=== PATIENT | male | born 1935 | race Caucasian/White ===

== ENCOUNTER 2023-05-21 01:52 | Emergency (ER) | payer OTHER, SELFPAY ==
[2023-05-21] VITALS (11 sets, daily range): BP systolic 82–194; BP diastolic 55–93; PULSE 51–58; RESP 17–28; TEMP 36.6; O2SAT 94–97; BMI 25.4
--- NOTE | 2023-05-21 02:06 | DI.RAD.S_ITS ---
PROCEDURE: XR CHEST 1V INDICATIONS: chest pain TECHNIQUE: One view of the chest was acquired. COMPARISON: None. FINDINGS: Surgical changes and devices: None. Lungs and pleura: Lungs are well expanded and clear. No pleural effusions or pneumothorax. Mediastinum: Mediastinal contours appear normal. Heart size is normal. Bones and chest wall: No suspicious bony lesions. Overlying soft tissues appear unremarkable. IMPRESSION: No acute cardiopulmonary abnormality. There is no significant discrepancy when compared to the overnight preliminary report. Approved by: Nitesh Iqbal M.D. on 05/21/2023 at 8:11
--- NOTE | 2023-05-21 02:08 | ED_ITS ---
HPI - Chest Pain General Chief Complaint: Chest Pain Stated Complaint: chest pain Time Seen by Provider: 05/21/23 01:58 Source: patient Mode of arrival: Ambulatory Limitations: no limitations History of Present Illness HPI narrative: Patient is a 88-year-old male history of hypothyroid hyperlipidemia presenting today with chest discomfort. He reports that while playing cards around 4:00 a.m. he experienced some heaviness. He said it went to away and then woke him from his sleep tonight. He describes a dull ache radiating up into his left arm now. He was slightly nauseous when he woke up no diaphoresis no shortness of breath. No known coronary artery disease. Denies any smoking history. Noted to be quite hypertensive here in the ED denies any prior history of hypertension. Related Data Allergies Allergy/AdvReac Type Severity Reaction Status Date / Time No Known Drug Allergies Allergy Verified 05/21/23 02:06 Review of Systems Review of Systems ROS Unobtainable: All systems reviewed & are unremarkable except as noted in HPI and below Patient History Social History Smoking Status: Never smoker Smoking Status: Never smoker alcohol intake frequency: 0-2 drinks per day Substance Use Type: does not use Exam Initial Vital Signs Initial Vital Signs: Vital Signs Temperature 98 F 05/21/23 02:02 Pulse Rate 56 L 05/21/23 02:02 Respiratory Rate 20 05/21/23 02:02 Blood Pressure 194/93 H 05/21/23 02:02 Pulse Oximetry 97 05/21/23 02:02 Oxygen Delivery Method Room Air 05/21/23 02:02 GENERAL: Alert pleasant well-appearing 88-year-old and in no acute distress. HEENT: Head atraumatic,EOMI, pupils reactive, face symmetric, moist mucous membranes CARDIOVASCULAR: Regular rate and rhythm without murmurs, rubs or gallops. Pain is nonreproducible was movement RESPIRATORY: Breath sounds equal bilaterally, no wheezes rales or rhonchi. ABDOMEN: Soft, nontender. Normoactive bowel sounds all 4 quadrants. No guarding or rebound. EXTREMITIES: Normal range of motion, no clubbing or edema. Neurovascularly intact NEUROLOGICAL: Alert and oriented x4.Normal gait and speech. SKIN: Warm, dry, no laceration, no petechiae, no rashes or lesions. Course Orders Ordered: ED Orders 05/21/23 02:00 Complete Blood Count AUTO DIFF Stat Comprehensive Metabolic Panel Stat Lipase Stat Magnesium Stat PTT Partial Thromboplastin Eddie Stat Prothrombin Time INR Stat Troponin & CK Cardiac Panel Stat 05/21/23 02:06 XR chest 1V Stat EKG-12 Lead Stat 05/21/23 03:00 PTT Partial Thromboplastin Eddie Q6H Discontinued Medications Aspirin (Aspirin 81 Mg Chew Tab) 324 mg PO NOW ONE Stop: 05/21/23 02:07 Last Admin: 05/21/23 02:17 Dose: 162 mg Documented By: SANDRA Heparin Sodium (Porcine) (Heparin 5,000 Unit/Ml Vial) 5,000 unit IV NOW ONE Stop: 05/21/23 02:48 Last Admin: 05/21/23 03:00 Dose: 5,000 unit Documented By: SANDRA Heparin Sodium/Dextrose (Heparin Drip) 25,000 unit in 500 mls @ 20 mls/hr IV CONT МАРИЯ; Protocol Last Admin: 05/21/23 03:05 Dose: 1,000 units/hr, 20 mls/hr Documented By: SANDRA Co-signed By: JAI Nitroglycerin (Nitroglycerin) 50 mg in 250 mls @ 1.5 mls/hr IV TITRATE МАРИЯ; Protocol Last Titration: 05/21/23 03:35 Dose: 0 mcg/min, 0 mls/hr Documented By: Titration: 05/21/23 03:14 Dose: 0 mcg/min, 0 mls/hr Documented By: Admin: 05/21/23 03:11 Dose: 5 mcg/min, 1.5 mls/hr Documented By: SANDRA Sodium Chloride (Normal Saline 0.9%) 1,000 mls @ 1,000 mls/hr IV BOLUS ONE Stop: 05/21/23 04:14 Last Admin: 05/21/23 03:16 Dose: 1,000 mls/hr Documented By: SANDRA Nitroglycerin (Nitroglycerin 0.4 Mg Sl Tab) 0.4 mg SL [id number] PRN PRN Reason: Chest Pain Last Admin: 05/21/23 03:02 Dose: 0.4 mg Documented By: Admin: 05/21/23 02:13 Dose: 0.4 mg Documented By: SANDRA Vital Signs Vital signs: Vital Signs - 8 hr 05/21/23 02:02 05/21/23 02:16 05/21/23 02:20 Temperature 98 F Pulse Rate 56 L 58 L 57 L Respiratory Rate 20 28 H 21 Blood Pressure 194/93 H 142/85 H 114/65 Pulse Oximetry 97 96 94 Oxygen Delivery Method Room Air Room Air Room Air 05/21/23 02:25 05/21/23 02:30 05/21/23 02:35 Temperature Pulse Rate 53 L 54 L 51 L Respiratory Rate 17 21 24 Blood Pressure 128/75 132/72 121/72 Pulse Oximetry 96 96 95 Oxygen Delivery Method Room Air 05/21/23 02:40 05/21/23 02:46 05/21/23 03:01 Temperature 97.8 F Pulse Rate 53 L 51 L 56 L Respiratory Rate 22 21 18 Blood Pressure 141/80 H 127/80 159/93 H Pulse Oximetry 95 96 96 Oxygen Delivery Method Room Air Room Air 05/21/23 03:15 05/21/23 03:18 Temperature Pulse Rate 53 L 58 L Respiratory Rate 21 19 Blood Pressure 82/55 L 87/57 L Pulse Oximetry 94 95 Oxygen Delivery Method Room Air Room Air MDM - Chest Pain Lab Data 05/21/23 02:00 05/21/23 02:00 Labs: Lab Results 05/21/23 05/21/23 05/21/23 Range/Units 02:00 02:00 02:00 WBC 9.4 (4.5-11.0) X10^3/uL RBC 4.31 L (4.5-5.9) X10^6/uL Hgb 14.1 (13.5-17.5) g/dL Hct 41.1 (41-53) % MCV 95.3 (80-100) fL MCH 32.8 (26-34) PG MCHC 34.4 (30-36) % RDW 13.8 (11.6-14.8) % Plt Count 280 (150-400) X10^3/uL Neut % (Auto) 69.6 (50-75) % Lymph % (Auto) 13.0 L (25-40) % Haines % (Auto) 9.4 (3-14) % Eos % (Auto) 7.4 H (2-4) % Baso % (Auto) 0.6 (0-2) % Neut # (Auto) 6500 (5621-5588) /uL Lymph # (Auto) 1200 (8674-8772) /uL Haines # (Auto) 900 (0-900) /uL Eos # (Auto) 700 H (0-450) /uL Baso # (Auto) 100 (0-100) /uL PT 11.4 (10.1-12.7) SECONDS INR 1.0 (0.9-1.3) APTT 29 (26-36) SECONDS Sodium 137 (137-145) mmol/L Potassium 4.2 (3.4-5.1) mmol/L Chloride 103 (98-107) mmol/L Carbon Dioxide 26 (22-32) mmol/L BUN 20 (9-20) mg/dL Creatinine 1.23 (0.66-1.25) mg/dL Estimated GFR 57 L (>60) mL/min BUN/Creatinine Ratio 16.3 (6-22) Glucose 108 (80-110) mg/dL Calcium 8.6 (8.4-10.2) mg/dL Magnesium 2.1 (1.6-2.3) mg/dL Total Bilirubin 0.6 (0.2-1.3) mg/dL AST 45 (17-59) IU/L ALT 36 (<50) IU/L Alkaline Phosphatase 71 (38-126) U/L Total Creatine Kinase 286 H (55-170) U/L CK-MB (CK-2) TNP CK-MB (CK-2) Rel Index TNP Troponin I 0.877 H* (0.01-0.034) ng/mL Total Protein 7.4 (6.3-8.2) g/dL Albumin 4.4 (3.5-5.0) g/dL Globulin 3.0 (1.7-4.1) g/dL Albumin/Globulin Ratio 1.5 (1.0-2.8) Lipase 59 (23-300) U/L Imaging Data Chest x-ray: Radiologist's Impression: Preliminary report Mid lung hyperinflation, no acute cardiopulmonary process ECG Data Interpretation: Sinus rhythm rate 57 UT interval 196 QRS 90 QTC 412 T elevation in [address] ST depression in V2 no priors to compare EKG 2. ST depression V2 V3No ST elevation EKG 3. ST elevation lead 2, AVF with persistent ST depression MDM Narrative Medical decision making narrative: Patient 88-year-old male history of hyperlipidemia presenting today with chest pain. Described it as heaviness woke him from his sleep tonight radiating to left shoulder. 1st EKG showed mild abnormalities. He was given sublingual nitroglycerin which did relieve his pain and hypertension. Troponin is positive at 0.877 3rd EKG does show obvious ST elevation in lead 2 possibly [address]F with some ST depression in aVL and mild precordial leads. Still having some discomfort put on a nitro drip and heparin drip. Given aspirin. STEMI protocol followed at [facility] accepts Critical Care Time Critical Care Time Critical Care Time: Yes Total Critical Care Time: 30 Attestation: The high probability of a clinically significant, sudden or life threatening deterioration of the [cardiovascular] system(s) required my full and direct attention, intervention and personal management. The aggregate critical care time was 30 minutes. This time is in addition to time spent performing reported procedures but includes the following: [x] Data Review and interpretation [x] Patient assessment and monitoring of vital signs [x] Documentation [x] Medication orders and management Discharge Plan Departure Patient Disposition: [facility] Clinical Impression: ST elevation myocardial infarction (STEMI)
[2023-05-21] MEDS: NITROGLYCERIN 0.4 MG SL TAB SL ×2 (02:13→03:02)
[2023-05-21] MEDS: ASPIRIN 81 MG CHEW TAB 324 MG PO (02:17)
--- NOTE | 2023-05-21 02:19 | CM.MNRNOTE ---
Prior to administration of nitroglycerin pt BP was 196/85 and pain 6/20. Sublingual nitro given at 0213 with BP of 142/85 and pain at 4/10.
[2023-05-21 02:29] LABS: Prothrombin Time 11.4 SECONDS (10.1-12.7)
[2023-05-21 02:32] LABS: PTT Partial Thromboplastin Tim 29 SECONDS (26-36)
[2023-05-21 02:34] LABS: Alanine Aminotransferase 36 IU/L (<50); Albumin 4.4 g/dL (3.5-5.0); Albumin Globulin Ratio 1.5 (1.0-2.8); Alkaline Phosphatase 71 U/L (38-126); Aspartate Aminotransferase 45 IU/L (17-59); BUN Creatinine Ratio 16.3 (6-22); Bilirubin Total 0.6 mg/dL (0.2-1.3); Blood Urea Nitrogen 20 mg/dL (9-20); Calcium 8.6 mg/dL (8.4-10.2); Carbon Dioxide 26 mmol/L (22-32); Chloride 103 mmol/L (98-107); Creatine Kinase 286 U/L (55-170); Estimated Glomerular Filt Rate 57 mL/min (>60); Glucose 108 mg/dL (80-110); Lipase 59 U/L (23-300); Magnesium 2.1 mg/dL (1.6-2.3); Potassium 4.2 mmol/L (3.4-5.1); Sodium 137 mmol/L (137-145); Total Protein 7.4 g/dL (6.3-8.2)
[2023-05-21 02:36] LABS: Add Manual Diff / Slide Review NO; Basophils Absolute Auto 100 /uL (0-100); Basophils Percent Auto 0.6 % (0-2); Eosinophils Absolute Auto 700 /uL (0-450); Eosinophils Percent Auto 7.4 % (2-4); Hematocrit 41.1 % (41-53); Hemoglobin 14.1 g/dL (13.5-17.5); Lymphocytes Absolute Auto 1200 /uL (1100-4500); Mean Corpuscular HGB Conc 34.4 % (30-36); Mean Corpuscular Hemoglobin 32.8 PG (26-34); Mean Corpuscular Volume 95.3 fL (80-100); Monocytes Absolute Auto 900 /uL (0-900); Monocytes Percent Auto 9.4 % (3-14); Neutrophils Absolute Auto 6500 /uL (1500-7000); Neutrophils Percent Auto 69.6 % (50-75); Platelet Count 280 X10^3/uL (150-400); Red Blood Cell Count 4.31 X10^6/uL (4.5-5.9); Red Cell Distribution Width 13.8 % (11.6-14.8); White Blood Cell Count 9.4 X10^3/uL (4.5-11.0)
--- NOTE | 2023-05-21 02:40 | PC.NURSE ---
0235: Pt continues to reports 4/10 CP. Denies other symptoms. Pt is A&Ox4 with unlabored respirations. Pt instructed to notify staff if CP increases. Pt's SO is at the bedside. Pt on cardaic monitor with cycling BPs.
[2023-05-21 02:45] LABS: Troponin I 0.877 ng/mL (0.01-0.034)
[2023-05-21 02:47] LABS: HEMOLYSIS 36 (0-50)
[2023-05-21] MEDS: HEPARIN 5,000 UNIT/ML VIAL 5000 UNIT IV (03:00)
[2023-05-21] MEDS: HEPARIN DRIP 25,000 UNIT/500 ML IV.SOLN 20 UNIT IV (03:05)
[2023-05-21] MEDS: NITROGLYCERIN 50 MG/250 ML INFUS..BTL IV (03:11)
[2023-05-21] MEDS: SODIUM CHLORIDE 0.9% 1,000 ML 1000 ML IV (03:16)
--- NOTE | 2023-05-21 03:21 | PC.NURSE ---
0315: Pt reports feeling syncopal and pt's BP dropped to systolic in the 80s. Nitroglycerin drip stopped and IV fluid bolus started. A few minutes after these interventions pt reports feeling better and pt's systolic BP begins to increase. ED MD aware and gives verbal order not to give any more sublingual nitroglycerin.
== END 2023-05-21 03:41 | disposition short-term general hospital (02) ==
PROVIDERS: Emergency Provider Emergency Medicine
DX: I21.3 ST elevation (STEMI) myocardial infarction of unspecified site (principal); R07.9 Chest pain, unspecified
CPT/HCPCS: 36415; 71045; 80053; 82550; 83690; 83735; 84484; 85025; 85610; 85730; 93005; 96365; 96375; 99284; 99291; J1644

== ENCOUNTER 2024-05-25 13:40 | Emergency (ER) | payer MEDICARE, SELFPAY ==
[2024-05-25] VITALS (7 sets, daily range): BP systolic 149–175; BP diastolic 74–96; PULSE 61–80; RESP 17–22; TEMP 36.6; O2SAT 98–99; BMI 25.0
--- NOTE | 2024-05-25 13:41 | DI.CT.S_ITS ---
PROCEDURE: CT HEAD/BRAIN WO CON INDICATIONS: Fall on blood thinners TECHNIQUE: Noncontrast 4.5 mm thick angled axial sections acquired from the foramen magnum to the vertex, with coronal and sagittal reformats. For radiation dose reduction, the following was used: automated exposure control, adjustment of mA and/or kV according to patient size. COMPARISON: None. FINDINGS: Image quality: Diagnostic. CSF spaces: Basal cisterns are patent. No extra-axial fluid collections. The ventricles are symmetric in size and shape. Brain: No intracranial bleeds or masses. There is cerebral volume loss for age, with resultant ventricular and sulcal prominence. There are moderate periventricular and deep white matter chronic small vessel ischemic changes. There is intracranial internal carotid artery atherosclerosis. Skull and face: Calvarium and visualized facial bones appear intact, without suspicious lesions. Sinuses: Visualized sinuses and mastoids are clear. IMPRESSION: No acute intracranial pathology. Dictated by: Russell Birch M.D. on 05/25/2024 at 14:28 Approved by: Russell Birch M.D. on 05/25/2024 at 14:29
--- NOTE | 2024-05-25 13:45 | EKG_ITS ---
[address] [id number] [address] [place] [address] Test Date: 2024-05-25 Pat Name: Timmy Siddiqui Department: Room: Gender: Male [employer]: : 1935 Requested By: Order Number: [id number] Reading MD: Calvin Hutson Measurements Intervals [place] Rate: 75 P: -7 GA: 196 QRS: -27 QRSD: 102 T: 70 QT: 396 QTc: 442 Interpretive Statements Sinus rhythm with premature atrial complexes Electronically Signed On 05-28-2024 9:42:25 PDT by Calvin Hutson
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
== END 2024-05-25 15:01 | disposition home or self-care (01) ==
PROVIDERS: Emergency Provider Emergency Medicine
DX: S01.81XA Laceration without foreign body of other part of head, initial encounter (principal); Z79.01 Long term (current) use of anticoagulants; V29.91XA Electric (assisted) bicycle rider (driver) (passenger) injured in unspecified traffic accident, initial encounter
CPT/HCPCS: 12013; 70450; 93005; 99283